=== PATIENT | female | born 1935 ===

== ENCOUNTER 2018-07-10 13:19 | Emergency (ER) | payer OTHER ==
[~2018-07-10] VITALS: Ht 152.4 cm; Wt 65.8 kg
[2018-07-10] MEDS ORDERED: ARICEPT5 MG (13:29)
[2018-07-10] MEDS ORDERED: ZOCOR20 MG (13:29)
[2018-07-10] MEDS ORDERED: NAMENDA10 MG (13:29)
== END 2018-07-10 19:44 | disposition home or self-care (01) ==
LOC: ER 13:19
DX: B34.9 Viral infection, unspecified (principal); F03.90 Unspecified dementia, unspecified severity, without behavioral disturbance, psychotic disturbance, mood disturbance, and anxiety; R05 Cough

== ENCOUNTER 2020-01-17 16:37 | Inpatient (IN) | payer OTHER ==
[~2020-01-17] VITALS: Ht 152.4 cm; Wt 57.6 kg
[~2020-01-17 16:37] MED LIST: ARICEPT5 MG; NAMENDA10 MG; ZOCOR20 MG
[2020-01-17] MEDS ORDERED: DURACHOL 3,7751 EACH PO (17:13)
[2020-01-17] MEDS ORDERED: SINGULAIR4 M1 PO (17:13)
[2020-01-17] MEDS ORDERED: ASPIR 8181 MG PO (17:14)
--- NOTE | 2020-01-17 17:29 | NUR ---
ACIENTE ALERTA, NO ORIENTADA EN TIEMPO , LUGAR, ACOMPANADA DE LUCIO HIJA LA CUAL REFIERE LA JALEN POR QUE MACEDO LA LLAMO Y REFIERE QUE LABORATORIO LE NOTIFICO RESULTADOS DE HEMOGLOBINA EN 4 , JALEN REFERIDO , SE REALIZA EKG, SE CONSULTA A DR. DOVE EL CUAL ORDENA UBICAR EN UNIDAD CRITICO. SE UBICA EN CAMA # 3 Y SE ENTERGA A RN, .SE FLORECITA CONECTADA EN MONITOR.
--- NOTE | 2020-01-17 17:55 | NUR ---
SE RECIBE AL PACIENTE EN UNIDAD DE CRITICO CUBICULO #3. SE CONECTA AL MONITOR CARIDACO Y OXYMETRIA DE PULSO. PACIENTE SE OBSERVA ALERTA Y ORIENTADA SOLO EN PERSONA. PREGUNTANDO POR LUCIO HIJA CONSTANTEMENTE. PACIENTE PADECE DE ALZHEIMER. SE ORIENTA AL PACIETE SOBRE CANALIZACION, MUESTRAS DE FRAN A COLECTAR Y IV FLUID. PACIENTE REFIERE ENTENDER AL MOMENTO. SE PROCEEDE A CANALIZAR, COLECTAR MUESTRAS DE FRAN Y COLOCAR IV FLUID COBY ORDEN MEDICA Y UTILIZANDO MEDIDAS ASEPTICAS. PACIENTE ES CANALIZADA EN ANTEBRAZO EUNICE CON ANGIO #20 Y MANO IZQUIERDA CON ANGIO #18. SE OBSERVA AREA DE VENOPUNCION CHARLES DE EDEMA AL MOMENTO. MUESTRAS SON ENVIADAS AL LABORATORIO. SE MANTIENE AL PACEINTE BAJO OBSERVACION POR CAMBIOS EN CONDICION DE WOJCIECH. PACIENTE EN CAMA AL NIVEL MAS, FRENOS COLOCADOS Y BARANDAS ELEVADAS.
--- NOTE | 2020-01-17 18:34 | NUR ---
PACIENTE SE TORNA AGRESIVO Y SE REMUEVE CANALIZACION. SE ORIENTA AL PACIENTE Y SE LE TOPHER APOYO EMOCIONAL. SE LE NOTIFICA AL DR. DOVE SOBRE LOS SUCEDIDO. SE PROVEE CUIDADO LOCAL AL PACIENTE.
--- NOTE | 2020-01-17 18:55 | NUR ---
PACIENTE SE TORNA AGRESIVO Y DESORIENTADO. SE ORIENTA AL PACIENTE Y SE LE TOPHER SUPPORT EMOCIONAL. PACIENTE QUIERE IRSE DEL HOSPITAL. COMIENZA A QUITARSE LOS CABLES DEL MONITOR CARDIACO Y EL DE OXYMETRIA. TAMBIEN SE DESCANALIZA MANO IZQUIERDA. SE LE NOTIFICA AL DR. DOVE EL CUAL ACTIVA ORDEN PARA RESTRINGIR AL PACIENTE. SE PROCEEDE A BRINDAR CUIDADO LOCAL PACIENTE EN AREA AFECTADA. SE PROVEE CAMBIO DE ROPA Y ROPA DE CAMA AL PACIENTE. SE MANTIENE AL PACIENTE BAJO OBSERACION PARA QUE NO SE TWAN SANGITA. PACIENTE EN ESPERA DE ORDEN DE RESTRINCION.
--- NOTE | 2020-01-17 19:00 | NUR ---
SE ORIENTA AL FAMILIAR SOBRE POSIBILIBAD DE RESTRINGIR AL PACIENTE DEBIDO A QUE LA MISMA SE ESTA CAUSANDO DANDO, ESTA DESORIENTADA, AGRESIVA Y A LUCIO VEZ ESTA INTERRUMPIENDO EL TRATAMIENTO. FAMILIAR REFIERE ENTENDER. SE PROCEEDE A NOTIFICAR AL DR. DOVE SOBRE POSIBILIDAD DE ACTIVAR LA RESTRINCION AL PACIENTE POR LO ANTES MENCIONADO.
--- NOTE | 2020-01-17 19:07 | NUR ---
SE ACTIVA EL PROTOCOLO DE RESTRINCION. PACIENTE ES RESTRINGIDA X2 EN EXTREMIDADES SUPERIORES.
--- NOTE | 2020-01-17 19:10 | NUR ---
MS. BARAJAS, NOTIFICA SOBRE COMPORTAMIENTO DEL PACIENTE. YA QUE EL MISMO SE TORNO AGRESIVO Y SE DESORIENTO. PACIENTE SE DESCANALIZA EL BRAZO DERECHO. MS. BARAJAS, LE TOPHER CUIDADO LOCAL AL AREA AFECATADA. SE LE PROVEE CAMBIO DE ROPA DE CAMA E HIGIENE PERSONAL.
[2020-01-24] MEDS ORDERED: INTEGRA PLUS C1 EACH PO (12:53)
[2020-01-24] MEDS ORDERED: ABANEU-SL TABL1 EACH SL (12:54)
[2020-01-24] MEDS ORDERED: FOLIC ACID0.8 M1 PO (12:54)
[2020-01-24] MEDS ORDERED: POLY119PG PO (12:56)
[2020-01-24] MEDS ORDERED: PROTONIX40 MG PO (12:56)
[2020-01-24] MEDS ORDERED: PEPCID AC20 MG PO (12:56)
[2020-01-24] MEDS ORDERED: COZAAR25 MG PO (12:56)
[2020-01-24] MEDS ORDERED: INTESTINEX680 M1 PO (13:01)
== END 2020-01-24 13:27 | disposition home or self-care (01) | DRG 690 ==
LOC: ER 16:37 → SEC-K 20:15 → SURH 20:15 → SURG 22:52 → SURH 22:54
PROVIDERS: ADMIT Internal Medicine; ATTEND Internal Medicine
PROC: 8E0ZXY6 Isolation (ICD-10-PCS; 2020-01-17)
PROC: B24BZZZ Ultrasonography of Heart with Aorta (ICD-10-PCS; 2020-01-17)
PROC: 30233N1 Transfusion of Nonautologous Red Blood Cells into Peripheral Vein, Percutaneous Approach (ICD-10-PCS; principal; 2020-01-18)
PROC: 4A12X4Z Monitoring of Cardiac Electrical Activity, External Approach (ICD-10-PCS; 2020-01-18)
DX: N39.0 Urinary tract infection, site not specified (principal); K92.1 Melena; D62 Acute posthemorrhagic anemia; G30.0 Alzheimer's disease with early onset; B96.29 Other Escherichia coli [E. coli] as the cause of diseases classified elsewhere; F02.80 Dementia in other diseases classified elsewhere, unspecified severity, without behavioral disturbance, psychotic disturbance, mood disturbance, and anxiety; I10 Essential (primary) hypertension; Z20.828 Contact with and (suspected) exposure to other viral communicable diseases

== ENCOUNTER 2020-06-08 08:03 | Outpatient (CLI) | payer OTHER ==
[~2020-06-08 08:03] MED LIST changes: +ABANEU-SL TABL1 EACH SL; +ASPIR 8181 MG PO; +COZAAR25 MG PO; +DURACHOL 3,7751 EACH PO; +FOLIC ACID0.8 M1 PO; +INTEGRA PLUS C1 EACH PO; +INTESTINEX680 M1 PO; +PEPCID AC20 MG PO; +POLY119PG PO; +PROTONIX40 MG PO; +SINGULAIR4 M1 PO
== END 2020-06-08 08:07 | disposition home or self-care (01) ==
LOC: TOM 08:03
PROVIDERS: ATTEND Internal Medicine Gastroenterology
DX: L92.8 Other granulomatous disorders of the skin and subcutaneous tissue (principal); K56.600 Partial intestinal obstruction, unspecified as to cause; K31.819 Angiodysplasia of stomach and duodenum without bleeding